=== PATIENT | female | born 1955 | race Hispanic/Latino ===

== ENCOUNTER 2018-06-12 08:28 | Emergency (ER) | payer OTHER ==
[2018-06-12 08:45] VITALS: O2SAT 96
[2018-06-12] MEDS ORDERED: Sodium Chloride 0.9% 1,000 ML IV ONE (09:02)
[2018-06-12 09:19] LABS: BASO # 0.1 K/uL (0.0-0.2); BASO % 0.8 % (0.0-2.0); EOS # 0.3 K/uL (0.0-0.7); EOS % 3.2 % (0.0-4.0); HEMOGLOBIN 14.7 g/dL (11.0-16.0); LYMPH # 1.9 K/uL (1.0-4.3); LYMPH % 23.3 % (20.0-40.0); MEAN CELL VOLUME 87.1 fL (81.0-99.0); MEAN CORPUSCULAR HEMOGLOBIN 28.3 pg (27.0-31.0); MEAN CORPUSCULAR HGB CONC 32.5 g/dL (33.0-37.0); MONO # 0.5 K/uL (0.0-0.8); MONO % 6.5 % (0.0-10.0); NEUT # 5.3 K/uL (1.8-7.0); NEUT % 66.2 % (50.0-75.0); NRBC % 0.1 % (0.0-2.0); RBC 5.19 Mil/uL (3.80-5.20); RED CELL DISTRIBUTION WIDTH 13.6 % (11.5-14.5)
[2018-06-12 09:30] LABS: INR 1.1; PROTHROMBIN TIME 11.9 SECONDS (9.7-12.2)
[2018-06-12 09:33] LABS: ALB/GLOB RATIO 1.5 (1.0-2.1); ALBUMIN 4.3 g/dL (3.5-5.0); ALT/SGPT 37 U/L (9-52); AST/SGOT 30 U/L (14-36); BLOOD UREA NITROGEN 14 mg/dL (7-17); CALCIUM 9.6 mg/dl (8.6-10.4); GFR NON-AFRICAN AMERICAN > 60; LIPASE 117 U/L (23-300)
[2018-06-12] MEDS ORDERED: Sodium Chloride 0.9% 1,000 ML ONE (09:33)
[2018-06-12 09:48] LABS: SQUAMOUS EPITHIAL 4 /hpf (0-5); URINE BILIRUBIN NEGATIVE (NEGATIVE); URINE BLOOD NEGATIVE (NEGATIVE); URINE CLARITY Clear (Clear); URINE COLOR Straw (YELLOW); URINE GLUCOSE (UA) NORMAL (Normal); URINE LEUKOCYTE ESTERASE NEG Leu/uL (Negative); URINE PROTEIN NEGATIVE (NEGATIVE); URINE UROBILINOGEN NORMAL mg/dL (0.2-1.0)
[2018-06-12 09:49] LABS: URINE BACTERIA MANY (<OCC)
--- NOTE | 2018-06-12 09:52 | C.PDOC ---
History Of Present Illness 62 year old female, with past medical history of bipolar disorder, presents to ED for evaluation of bright red blood in stool last night and this morning. Otherwise, she denies abdominal pain, rectal pain, constipation, nausea, vomit ing, headache, or weakness. Time Seen by Provider: 06/12/18 08:46 Chief Complaint (Nursing): GI Problem History Per: Patient History/Exam Limitations: no limitations Onset/Duration Of Symptoms: Days Current Symptoms Are (Timing): Still Present Associated Symptoms: denies: Nausea, Vomiting, Hematemesis, Lightheadedness Modifying Factors: None Recent travel outside of the [place]: No Additional History Per: Patient Past Medical History Reviewed: Historical Data, Nursing Documentation, Vital Signs Vital Signs: Last Vital Signs Temp 98.5 F 06/12/18 08:31 Pulse 87 06/12/18 08:31 Resp 18 06/12/18 08:31 BP 116/76 06/12/18 08:31 Pulse Ox 96 06/12/18 08:31 - Medical History PMH: Anxiety, Bipolar Disorder, Depression, Schizophrenia - [facility] Procedures D & C NEC (11/09/06) LAPAROSCOP LYSIS-PERITONEAL ADHES (08/17/00) OTHER GROUP THERAPY (09/12/13) PSYCHIAT DRUG THERAP NEC (09/12/13) TOTAL UNILAT SALPINGECT (08/17/00) UTERINE LES DESTRUCT NEC (11/09/06) Family History: States: Unknown Family Hx - Social History Hx Tobacco Use: Yes Hx Alcohol Use: No Hx Substance Use: No - Immunization History Hx Tetanus Toxoid Vaccination: Yes Hx Influenza Vaccination: Yes Hx Pneumococcal Vaccination: Yes Review Of Systems Except As Marked, All Systems Reviewed And Found Negative. Constitutional: Negative for: Fever, Chills Gastrointestinal: Positive for: Hematochezia (bright red blood in stool). Negative for: Nausea, Vomiting, Abdominal Pain, Constipation, Hematemesis Genitourinary: Negative for: Dysuria, Frequency Musculoskeletal: Negative for: Back Pain Physical Exam - Physical Exam Appears: Non-toxic, No Acute Distress Skin: Normal Color, Warm, Dry Head: Atraumatic, Normacephalic Eye(s): bilateral: Normal Inspection Oral Mucosa: Moist Neck: Normal ROM, Supple Cardiovascular: Rhythm Regular, No Murmur Respiratory: Normal Breath Sounds, No Rales, No Rhonchi, No Wheezing Gastrointestinal/Abdominal: Soft, No Tenderness, No Guarding, No Rebound, Other (obese abdomen) Rectal: Heme Positive, No Hemorrhoids, No Mass, No Tenderness, Other (bright red blood around rectum and in stool) Back: No CVA Tenderness Pelvic: Other (atrophic vagina with polyps) Extremity: Normal ROM Neurological/Psych: Oriented x3, Normal Speech ED Course And Treatment - Laboratory Results Result Diagrams: 06/12/18 09:16 06/12/18 09:16 ECG: Interpreted By Me, Viewed By Me ECG Rhythm: Sinus Rhythm ECG Interpretation: No Acute Changes Rate From EC O2 Sat by Pulse Oximetry: 96 (RA) Pulse Ox Interpretation: Normal Medical Decision Making Medical Decision Making: Impression: Hematochezia, lower GI bleed Plan: * Labs * UA * Stool occult Progress: 950 Labs reviewed, normal H/H and platelets. CMP WNL. +Stool occult. The patient remained well and in no acute distress. She has no abdominal or rectal pain, and abdomen was nontender. No concern for colitis or other infectious etiology at this time. She has stable vital signs and asymptomatic. Case reviewed with ED attending DR Smith. She agrees the patient is appropriate to discharge and can follow up outpatient. Discussed results with patient and provided copy of lab reports and the plan to discharge and have close follow up with PMD and GI. Patient expressed understanding, and all questions answered. Disposition Counseled Patient/Family Regarding: Studies Performed, Diagnosis, Need For Followup - Disposition Referrals: Catrachito Durham MD, PhD [Staff Provider] - Adrian Dewey MD [Staff Provider] - Disposition: HOME/ ROUTINE Disposition Time: 10:10 Condition: STABLE Additional Instructions: You were evaluated in the ED today for bloody stools. Your lab work results were normal. It is important that you follow up with your primary doctor and GI specialist as soon as possible. You will likely need colonoscopy and further outpatient care. Return to hospital if you develop any dizziness, shortness of breath, abdominal pain or other concern Instructions: Bloody Stools, Adult (DC) Forms: [email or web address] (Panamanian) - POA Present On Arrival: None - Clinical Impression Clinical Impression: Hematochezia - PA / LICENSED STAFF MFT / Resident Statement MD/DO has reviewed & agrees with the documentation as recorded. - Scribe Statement The provider has reviewed the documentation as recorded by the Scribe Kripal Bryson All medical record entries made by the Madhu were at my direction and personally dictated by me. I have reviewed the chart and agree that the record accurately reflects my personal performance of the history, physical exam, medical decision making, and the department course for this patient. I have also personally directed, reviewed, and agree with the discharge instructions and disposition.
[2018-06-12 10:30] VITALS: BP 105/70; PULSE 65; RESP 20; TEMP 97.9
--- NOTE | 2018-06-14 15:07 | CARD ---
APPROVED REPORT Date of service: 06/12/2018 EKG Measurement Heart [id number] <Conclusion> Normal sinus rhythm Normal ECG
== END 2018-06-12 10:32 | disposition home or self-care (01) ==
LOC: C.ER 08:28
DX: K92.1 Melena (principal); F20.9 Schizophrenia, unspecified; Z72.0 Tobacco use
CPT/HCPCS: 80053; 81001; 83690; 85025; 85610; 85730; 93005; 96361; 96374; 99285; C9113; G0328; J7030

== ENCOUNTER 2018-08-24 12:46 | Outpatient (CLI) | payer OTHER | END 2018-08-24 12:47 | disposition home or self-care (01) | LOC: C.LAB 12:46 | DX: D49.0 Neoplasm of unspecified behavior of digestive system (principal); D01.0 Carcinoma in situ of colon ==

== ENCOUNTER 2018-08-25 08:33 | Outpatient (CLI) | payer OTHER | END 2018-08-26 07:57 | disposition home or self-care (01) | LOC: C.CTH 08:33 | DX: D49.0 Neoplasm of unspecified behavior of digestive system (principal); D01.0 Carcinoma in situ of colon ==

== ENCOUNTER 2018-08-27 07:04 | Day surgery (SDC) | payer OTHER ==
[2018-08-27] MEDS ORDERED: Propofol 10 mg/ml Inj (20 ML) ONE (08:09)
[2018-08-27] MEDS ORDERED: Lactated Ringer's 500 ML IV SCH (08:30)
--- NOTE | 2018-08-27 08:43 | CP.SDSHP ---
Same Day Surgery H & P - History Proposed Procedure: colonoscopy - Previous Medical/Surgical History Pulmonary: Emphysema/COPD Comments: Bipolar dx GERD - Allergies Allergies: Allergies No Known Allergies Allergy (Verified 10/13/14 17:58) - Physical Exam Vital Signs: Vital Signs 08/27/18 08/27/18 07:12 08:24 Temperature 97.3 F L 97.3 F L Pulse Rate 75 75 Respiratory 19 19 Rate Blood Pressure 101/57 L 101/57 L O2 Sat by Pulse 97 97 Oximetry - Date & Time Date: 08/27/18 Time: 08:43 Short Stay Discharge - Short Stay Discharge Admitting Diagnosis/Reason for Visit: NEOPLASM OF UNSPECIFIED BEHAVIOR OF DIGESTIVE SYST Disposition: HOME/ ROUTINE
[2018-08-27 09:53] VITALS: TEMP 98.9
[2018-08-27 11:45] VITALS: BP 94/52; PULSE 71; RESP 15; O2SAT 94
== END 2018-08-27 11:30 | disposition home or self-care (01) ==
LOC: C.ENDO 07:04
PROVIDERS: ATTEND Colon & Rectal Surgery
DX: D49.0 Neoplasm of unspecified behavior of digestive system (principal); K62.1 Rectal polyp; D12.0 Benign neoplasm of cecum; K57.10 Diverticulosis of small intestine without perforation or abscess without bleeding
CPT/HCPCS: 45385; 45388; 88305; J2001; J2704; J7120